=== PATIENT | female | born 1955 | race Caucasian/White ===

== ENCOUNTER 2022-12-07 13:36 | Emergency (ER) | payer BC ==
[2022-12-07 13:47] VITALS: BP 148/64; PULSE 66; RESP 18; TEMP 97.5; BMI 27.1
== END 2022-12-07 15:08 | disposition home or self-care (01) ==
LOC: JERFT 13:36
DX: Z48.02 Encounter for removal of sutures (principal)
CPT/HCPCS: 99283-25